=== PATIENT | male | born 1945 | race Hispanic/Latino ===

== ENCOUNTER → 2022-07-07 | Outpatient (CLI) | payer OTHER | END | disposition home or self-care (01) | LOC: RAH 11:42 | PROVIDERS: ATTEND Internal Medicine | DX: M17.0 Bilateral primary osteoarthritis of knee (principal); M17.9 Osteoarthritis of knee, unspecified ==

== ENCOUNTER → 2022-10-03 | Outpatient (CLI) | payer OTHER | END | disposition home or self-care (01) | LOC: RAH 16:20 | PROVIDERS: ATTEND Internal Medicine | DX: M19.011 Primary osteoarthritis, right shoulder (principal); M25.511 Pain in right shoulder | CPT/HCPCS: 73030 ==

== ENCOUNTER 2024-08-11 10:39 | Observation (INO) | payer OTHER ==
[~2024-08-11] VITALS: Ht 162.6 cm; Wt 87.1 kg
--- NOTE | 2024-08-11 11:29 | HMCIMG ---
EXAM: CT Head Without IV contrast. CLINICAL HISTORY: fall TECHNIQUE: Axial computed tomography images of the head/brain without intravenous contrast. COMPARISON: None provided. FINDINGS: BRAIN: No acute bleed or infarct. Chronic ischemic and atrophic changes. VENTRICLES: No hydrocephalus. ORBITS: The orbits are unremarkable. SINUSES AND MASTOIDS: The paranasal sinuses and mastoid air cells are clear. BONES: No fracture. SOFT TISSUES: Unremarkable. IMPRESSION: No acute bleed or infarct. Chronic ischemic and atrophic changes. /[place]
--- NOTE | 2024-08-11 11:38 | HMCIMG ---
EXAM: CT Cervical Spine Without IV contrast. CLINICAL HISTORY: fall TECHNIQUE: Axial computed tomography images of the cervical spine without intravenous contrast. Sagittal and coronal reformatted images were generated. COMPARISON: None provided. FINDINGS: ALIGNMENT: No dislocation. Straightening of the cervical spine. DEGENERATIVE CHANGES: Mild to moderate degenerative changes which are more pronounced in the lower cervical spine. SOFT TISSUES: The prevertebral soft tissues are within normal limits. BONES: No fracture in the cervical spine. Nondisplaced fracture of the left occipital bone. IMPRESSION: 1. Nondisplaced fracture of the left occipital bone. 2. No fracture or dislocation in the cervical spine. 3. Straightening of the cervical spine. Which may be due to paraspinal muscle spasm. 4. Mild to moderate degenerative changes which are more pronounced in the lower cervical spine. /[place]
[2024-08-11 12:09] LABS: IMMATURE GRANULOCYTE ABSOLUTE 0.07 K/uL (0-1); NUCLEATED RED BLOOD CELLS 0.0 % (0.0-0.19); PLATELET COUNT (AUTO) 161 K/uL (130-400); RED BLOOD CELL COUNT(AUTO) 3.97 MIL/uL (4.50-6.20); RED CELL DISTRIBUTION WIDTH 14.3 % (11.0-15.5); WHITE BLOOD COUNT (AUTO) 5.1 K/uL (4.8-10.8)
[2024-08-11 12:16] LABS: CREATININE 0.8 mg/dL (0.5-1.3); GLOMERULAR FILTR. RATE CALC 91.0 mL/min (>90); GLUCOSE,RANDOM 222.0 mg/dL (70-105); SODIUM SERUM 139.0 mmol/L (136-145); UREA NITROGEN, BLOOD 14.0 mg/dL (7-18)
[2024-08-11 12:26] LABS: APPEARANCE,URINE CLEAR (CLEAR); GLUCOSE, URINE (UA) >=1000 mg/dL (NEGATIVE); LEUKOCYTE ESTERASE ,URINE 250 Leu/uL (NEGATIVE); NITRATE,URINE NEGATIVE (NEGATIVE); OCCULT BLOOD,URINE NEGATIVE (NEGATIVE)
[2024-08-11 12:31] LABS: ADD UA MICROSCOPIC YES
--- NOTE | 2024-08-11 12:48 | EKG ---
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
--- NOTE | 2024-08-11 13:00 | HMCIMG ---
EXAM: CR right elbow, 2 View. CLINICAL HISTORY: fall COMPARISON: None provided. FINDINGS: BONES: No acute fracture or aggressive appearing osseous lesion. 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 Heterotopic ossification at the lateral aspect of the elbow reflecting a prior ligamentous injury. SOFT TISSUES: Soft tissue edema at the proximal aspect of the right forearm. IMPRESSION: 1. No acute osseous injury. 2. Soft tissue edema of the proximal right forearm. 3. 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 /[place]
--- NOTE | 2024-08-11 13:03 | HMCIMG ---
EXAM: CR Sacrum and Coccyx, 3 View. CLINICAL HISTORY: fall COMPARISON: None provided. FINDINGS: BONES: Bones are osteopenic, limiting evaluation for nondisplaced fractures. There is no displaced fracture or evidence of periostitis. There is mild grade 1 anterolisthesis of L5 with respect to S1 likely related to facet joint osteoarthritis. SOFT TISSUES: The soft tissues are unremarkable. IMPRESSION: 1. No acute osseous injury. If clinical concern persists recommend CT imaging for further evaluation. /[place]
[2024-08-11 13:04] LABS: SQUAMOUS EPITHELIAL CELL,UR RARE /HPF (0-2)
--- NOTE | 2024-08-11 13:11 | HMCIMG ---
EXAM: CR Chest, 1 View. CLINICAL HISTORY: sob COMPARISON: Radiograph dated July 17, 2013 FINDINGS: LUNGS: The lungs show no infiltrate or other acute finding. Mild bibasilar atelectasis and/or parenchymal scarring. PLEURAL SPACES: No pleural effusion or pneumothorax. MEDIASTINUM: Mild cardiomegaly. Mild central pulmonary vascular congestion. BONES: No aggressive appearing osseous lesion seen. IMPRESSION: 1. No acute cardiopulmonary findings. 2. Mild cardiomegaly with mild central pulmonary vascular congestion. [facility]
[2024-08-11] MEDS ORDERED: ASPI-449 PO (13:27)
[2024-08-11] MEDS ORDERED: LOSA100T59 PO (13:29)
[2024-08-11] MEDS ORDERED: TAMS-55 PO (13:29)
[2024-08-11] MEDS ORDERED: ATOR40TA71 PO (13:29)
[2024-08-11] MEDS ORDERED: PIOG30TA70 PO (13:29)
[2024-08-11] MEDS ORDERED: CYAN10007 IJ (13:29)
[2024-08-11] MEDS ORDERED: METF-446 PO (13:29)
--- NOTE | 2024-08-11 13:53 | ERN ---
ED Note History of Present Illness Stated Complaint: FALL Chief Complaint: Mechanical Fall Time Seen by MD: 10:44 Time Seen by Midlevel: 10:48 Dictation: 79-year-old male coming in status post fall. Patient states he was walking down three steps and fell back landing on his buttocks and hitting his head on the concrete. Negative LOC, no blood thinners. Complaining of headache and right shoulder pain. Allergies: Coded Allergies: No Known Drug Allergies (Unverified Allergy, Unknown, 08/11/24) Home Meds Active Scripts Cyanocobalamin (Vitamin B-12) (Cyanocobalamin Injection) 1,000 Mcg/Ml Vial, 1000 MCG IJ QMONTH, #4 VIAL Prov:KANDY MAHMOOD MD 08/11/24 Tamsulosin HCl (Flomax) 0.4 Mg Cap.er.24h, 0.4 MG PO BID, #180 CAPSULE. Prov:KANDY MAHMOOD MD 08/11/24 Pioglitazone HCl (Pioglitazone HCl) 30 Mg Tablet, 30 MG PO DAILYBKFST, #90 TAB Prov:KANDY MAHMOOD MD 08/11/24 Metformin HCl (Metformin HCl) 1,000 Mg Tablet, 1000 MG PO BID, #180 TAB Prov:KANDY MAHMOOD MD 08/11/24 Losartan Potassium (Losartan Potassium) 100 Mg Tablet, 100 MG PO DAILY, #90 TAB Prov:KANDY MAHMOOD MD 08/11/24 Atorvastatin Calcium (Atorvastatin Calcium) 40 Mg Tablet, 40 MG PO HS, #90 TAB Prov:KANDY MAHMOOD MD 08/11/24 Aspirin (Adult Low Dose Aspirin EC) 81 Mg Tablet., 81 MG PO DAILY, #90 TAB Prov:KANDY MAHMOOD MD 08/11/24 Past Medical History Past Medical History: Diabetes-Type II, High Cholesterol, Hypertension Surgical History: Other Surgical History Other: BRAIN SX Review of System Dictation Constitutional: Negative for fever,chills, and weight loss Eyes: Negative for injury, pain,redness, and discharge ENT: Negative for injury,pain or swelling Cardiovascular: Negative for chest pain, palpitations, and edema Respiratory: Negative for shortness of breath, cough, and wheezing, Abdomen/GI: Negative for abdominal pain, nausea, vomiting, diarrhea, and constipation Back: Negative for injury and pain : Negative for injury, bleeding and discharge MS/Extremity: Negative for injury and deformity, complaining of right elbow pain Skin: Negative for rash, and discoloration Neuro: Complaining of headache, no numbness, no weakness, no tingling Psych: Negative for suicide ideation, homicidal ideation, and hallucinations Review of Systems: was completed Initial Vital Sign VS Vital Signs Date Time Temp Pulse Resp B/P (MAP) Pulse Ox O2 Delivery O2 Flow Rate FiO2 08/11/24 10:47 97.9 88 16 175/85 96 Room Air 0 Physical Exam Dictation General: awake, alert, NAD Head/Face: Normocephalic, atraumatic Eyes: PERRL, EOMI, vision at baseline ENT: oral cavity clear, TMs clear, no signs of infection Neck: Trachea midline, supple, no nuchal rigidity Cardiovascular: RRR, normal S1/S2, No MRGs, no JVD Respiratory: CTAB, no respiratory distress, No rales or wheezes Abdomen: Soft, non-tender, non-distended, normal bowel sounds, no guarding or rebound. Skin: Warm, dry, normal turgor, no rash, superficial abrasion to the occipital area MS/Extremity: Pulses equal, no cyanosis, neurovascular intact, FROM Neuro: COAx4, GCS 15, strength 5/5, CN 2-12 intact, normal cerebellar exam, normal gait, Psych: Normal behavior, mood, and affect normal Results (Laboratory/Radiology) Laboratory/Radiology Laboratory Tests Test 08/11/24 11:56 08/11/24 12:02 Urine Color LIGHT-YELLOW (YELLOW) Urine Appearance CLEAR (CLEAR) Urine pH 6.0 (5.0-8.0) Urine Specific [place] 1.015 (1.001-1.031) Urine Protein 20 mg/dL (NEGATIVE) H Urine Glucose (UA) >=1000 mg/dL (NEGATIVE) H Urine Ketones NEGATIVE mg/dL (NEGATIVE) Urine Occult Blood NEGATIVE (NEGATIVE) Urine Nitrate NEGATIVE (NEGATIVE) Urine Bilirubin NEGATIVE mg/dL (NEGATIVE) Urine Urobilinogen 0.2 mg/dL (0.2-1.0) Urine Leukocyte Esterase 250 Moni/uL (NEGATIVE) H Urine RBC 2-5 /HPF (0-1) H Urine WBC 6-10 /HPF (0-1) H Urine Squamous Epithelial Cells RARE /HPF (0-2) Urine Bacteria None /HPF (None Seen) White Blood Count 5.1 K/uL (4.8-10.8) Red Blood Count 3.97 MIL/uL (4.50-6.20) L Hemoglobin 12.3 g/dL (14.0-18.0) L Hematocrit 38.5 % (42-54) L Mean Corpuscular Volume 97.0 fL (79-99) Mean Corpuscular Hemoglobin 31.0 pg (27.0-33.0) Mean Corpuscular Hemoglobin Concent 31.9 g/dL (32.0-36.0) L Red Cell Distribution Width 14.3 % (11.0-15.5) Platelet Count 161 K/uL (130-400) Mean Platelet Volume 11.5 fL (7.5-10.5) H Immature Granulocyte % (Auto) 1.4 % (0-1) H Neutrophils (%) (Auto) 85.0 % (40.0-77.0) H Lymphocytes (%) (Auto) 5.3 % (21.0-51.0) L Monocytes (%) (Auto) 6.3 % (3.0-13.0) Eosinophils (%) (Auto) 1.6 % (0.0-8.0) Basophils (%) (Auto) 0.4 % (0.0-5.0) Neutrophils # (Auto) 4.4 K/uL (1.8-7.7) Lymphocytes # (Auto) 0.3 K/uL (1.0-4.8) L Monocytes # (Auto) 0.3 K/uL (0.1-1.0) Eosinophils # (Auto) 0.08 K/uL (0.00-0.70) Basophils # (Auto) 0.02 K/uL (0.00-0.20) Absolute Immature Granulocyte (auto 0.07 K/uL (0-1) Nucleated Red Blood Cells 0.0 % (0.0-0.19) White Cell Morphology Comment See comments Sodium Level 139 mmol/L (136-145) Potassium Level 4.2 mmol/L (3.5-5.1) Chloride Level 103 mmol/L (101-111) Carbon Dioxide Level 30 mmol/L (21-32) Blood Urea Nitrogen 14 mg/dL (7-18) Creatinine 0.8 mg/dL (0.5-1.3) Glomerular Filtration Rate Calc 91 mL/min (>90) Random Glucose 222 mg/dL (70-105) H Total Calcium 8.9 mg/dL (8.5-10.1) Troponin I High Sensitivity 9 ng/L (4-75) Labs Reviewed?: Yes X-RAY Comment: [facility] [address] [place] [address] [id number] IMAGING REPORT Signed PATIENT: CRISTÓBAL URBINA MR#: [id number] : 1945 SEX: M AGE: 79 LOCATION: [facility] ORDER 1145 STATUS: REG ER REPORT#: [id number] SERVICE 1143 REASON: sob ORDERING PHYSICIAN: CAREN PEREIRA NP PROCEDURE: CXR1VW - CHEST 1VW EXAM: CR Chest, 1 View. CLINICAL HISTORY: sob COMPARISON: Radiograph dated July 17, 2013 FINDINGS: LUNGS: The lungs show no infiltrate or other acute finding. Mild bibasilar atelectasis and/or parenchymal scarring. PLEURAL SPACES: No pleural effusion or pneumothorax. MEDIASTINUM: Mild cardiomegaly. Mild central pulmonary vascular congestion. BONES: No aggressive appearing osseous lesion seen. IMPRESSION: 1. No acute cardiopulmonary findings. 2. Mild cardiomegaly with mild central pulmonary vascular congestion. /[place] DICTATED BY: FLACO CRUZ Jr., MD DATE: 08/11/241409 ELECTRONICALLY SIGNED BY: FLACO CRUZ Jr., MD DATE: 08/11/24 141 [facility] [address] [place] [id number] IMAGING REPORT Signed PATIENT: CRISTÓBAL URBINA MR#: [id number] : 1945 SEX: M AGE: 79 LOCATION: [facility] ORDER 1048 STATUS: REG [facility] REPORT#: [id number] SERVICE 46 REASON: fall ORDERING PHYSICIAN: CAREN PEREIRA BREEDING TECHNICIAN PROCEDURE: SAC SHEILA 2V - SACRUM/COCCYX 2+VWS EXAM: CR Sacrum and Coccyx, 3 View. CLINICAL HISTORY: fall COMPARISON: None provided. FINDINGS: BONES: Bones are osteopenic, limiting evaluation for nondisplaced fractures. There is no displaced fracture or evidence of periostitis. There is mild grade 1 anterolisthesis of L5 with respect to S1 likely related to facet joint osteoarthritis. SOFT TISSUES: The soft tissues are unremarkable. IMPRESSION: 1. No acute osseous injury. If clinical concern persists recommend CT imaging for further evaluation. /[place] DICTATED BY: FLACO CRUZ Jr., MD DATE: 08/11/241401 ELECTRONICALLY SIGNED BY: FLACO CRUZ Jr., MD DATE: 08/11/241401 [place] [address] IMAGING REPORT Signed PATIENT: CRISTÓBAL URBINA MR#: [id number] : 1945 SEX: M AGE: 79 LOCATION: [facility] ORDER 47 STATUS: REG ER [facility] REPORT#: [id number] SERVICE 46 REASON: fall ORDERING PHYSICIAN: CAREN PEREIRA NP PROCEDURE: KHQ2UWP - ELBOW 2VWS RT EXAM: CR right elbow, 2 View. CLINICAL HISTORY: fall COMPARISON: None provided. FINDINGS: BONES: No acute fracture or aggressive appearing osseous lesion. 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 Heterotopic ossification at the lateral aspect of the elbow reflecting a prior ligamentous injury. SOFT TISSUES: Soft tissue edema at the proximal aspect of the right forearm. IMPRESSION: 1. No acute osseous injury. 2. Soft tissue edema of the proximal right forearm. 3. 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 /[place] DICTATED BY: FLACO CRUZ Jr., MD DATE: 08/11/24 135 ELECTRONICALLY SIGNED BY: FLACO CRUZ Jr., MD DATE: 08/11/[address] Scan Comment: [place] [address] [place] [address] IMAGING REPORT Addendum PATIENT: CRISTÓBAL URBINA MR#: [id number] : 1945 SEX: M AGE: 79 LOCATION: [facility] ORDER 47 STATUS: [facility] REPORT#: [id number] SERVICE 46 REASON: fall ORDERING PHYSICIAN: CAREN PEREIRA BREEDING TECHNICIAN PROCEDURE: HEAD WO - CT HEAD/BRAIN W/O CONTRAST ADDENDUM REPORT ADDENDUM: Results were shared by telephone at 12:43 pm on 08-11-24 and acknowledged by Caren Bales /[place] ADDENDUM: There is a nondisplaced fracture of the left occipital bone. /[place] EXAM: CT Head Without IV contrast. CLINICAL HISTORY: fall TECHNIQUE: Axial computed tomography images of the head/brain without intravenous contrast. COMPARISON: None provided. FINDINGS: BRAIN: No acute bleed or infarct. Chronic ischemic and atrophic changes. VENTRICLES: No hydrocephalus. ORBITS: The orbits are unremarkable. SINUSES AND MASTOIDS: The paranasal sinuses and mastoid air cells are clear. BONES: No fracture. SOFT TISSUES: Unremarkable. IMPRESSION: No acute bleed or infarct. Chronic ischemic and atrophic changes. /[place] DICTATED BY: PARDEEP SPEAR MD DATE: 08/11/24 1248 ELECTRONICALLY SIGNED BY: DATE: EXAM: CT Head Without IV contrast. CLINICAL HISTORY: fall TECHNIQUE: Axial computed tomography images of the head/brain without intravenous contrast. COMPARISON: None provided. FINDINGS: BRAIN: No acute bleed or infarct. Chronic ischemic and atrophic changes. VENTRICLES: No hydrocephalus. ORBITS: The orbits are unremarkable. SINUSES AND MASTOIDS: The paranasal sinuses and mastoid air cells are clear. BONES: No fracture. SOFT TISSUES: Unremarkable. IMPRESSION: No acute bleed or infarct. Chronic ischemic and atrophic changes. /[place] DICTATED BY: PARDEEP SPEAR MD DATE: 08/11/241227 ELECTRONICALLY SIGNED BY: PARDEEP SPEAR MD DATE: 08/11/241227 [address] [place] [id number] IMAGING REPORT Addendum PATIENT: CRISTÓBAL URBINA MR#: [id number] : 1945 SEX: M AGE: 79 LOCATION: ED ORDER 47 STATUS: [facility] REPORT#: [id number] SERVICE 46 REASON: fall ORDERING PHYSICIAN: CAREN PEREIRA NP PROCEDURE: C SPIN WO - CT CERVICAL SPINE W/O CONTRAST ADDENDUM REPORT ADDENDUM: Results were shared by telephone at 12:43 pm on 08-11-24 and acknowledged by Caren Bales /[place] EXAM: CT Cervical Spine Without IV contrast. CLINICAL HISTORY: fall TECHNIQUE: Axial computed tomography images of the cervical spine without intravenous contrast. Sagittal and coronal reformatted images were generated. COMPARISON: None provided. FINDINGS: ALIGNMENT: No dislocation. Straightening of the cervical spine. DEGENERATIVE CHANGES: Mild to moderate degenerative changes which are more pronounced in the lower cervical spine. SOFT TISSUES: The prevertebral soft tissues are within normal limits. BONES: No fracture in the cervical spine. Nondisplaced fracture of the left occipital bone. IMPRESSION: 1. Nondisplaced fracture of the left occipital bone. 2. No fracture or dislocation in the cervical spine. 3. Straightening of the cervical spine. Which may be due to paraspinal muscle spasm. 4. Mild to moderate degenerative changes which are more pronounced in the lower cervical spine. /[place] DICTATED BY: PARDEEP SPEAR MD DATE: 08/11/24 1250 ELECTRONICALLY SIGNED BY: DATE: EXAM: CT Cervical Spine Without IV contrast. CLINICAL HISTORY: fall TECHNIQUE: ED Course ED Course Orders Procedure Category Date Status Time Ct Head/Brain W/O CT 08/11/24 Resulted Contrast 10:47 Ct Cervical Spine W/O CT 08/11/24 Resulted Contrast 10:47 Sacrum/Coccyx 2+Vws RAD 08/11/24 Resulted 10:47 Elbow 2vws Rt RAD 08/11/24 Resulted 10:47 Cbc With Differential LAB 08/11/24 Complete 11:44 Basic Metabolic Panel LAB 08/11/24 Complete 11:44 Troponin I High LAB 08/11/24 Complete Sensitivity 11:44 12 Lead Ekg Tracing- EKG 08/11/24 Complete Technical 11:44 Chest 1vw RAD 08/11/24 Resulted 11:44 Urinalysis Profile LAB 08/11/24 Complete 11:44 Culture Urine YOKASTA 08/11/24 In Process 12:34 Morphine 2mg Syg PHA 08/11/24 Complete (Morphine 2mg Syg) 13:18 Ondansetron 4mg Inj PHA 08/11/24 Complete (Zofran 4mg Inj) 13:18 Atorvastatin 40mg PHA 08/11/24 In Process (Lipitor 40mg) 21:00 Losartan 100 Mg PHA 08/12/24 In Process Tablet (Cozaar 100mg 09:00 Pioglitazone 30mg Tab PHA 08/12/24 In Process (Actos 30mg) 08:00 Tamsulosin Hcl PHA 08/11/24 In Process (Flomax) 21:00 Metformin Hcl PHA 08/11/24 In Process (Glucophage) 17:00 Current Medications Medications (Trade) Dose Ordered Sig/Anil Route PRN Reason Start Time Stop Time Status Last Admin Dose Admin Atorvastatin Calcium (LIPItor 40MG) 40 mg HS PO 08/11/24 21:00 09/10/24 20:59 Losartan Potassium (CozAAR 100MG TAB) 100 mg DAILY PO 08/12/24 09:00 09/11/24 08:59 Metformin HCl (glucoPHAGE) 1,000 mg BIDMEALS PO 08/11/24 17:00 09/10/24 16:59 Morphine Sulfate (morPHINE 2MG SYG) 2 mg ONCE STAT IVP 08/11/24 13:18 08/11/24 13:20 DC Ondansetron HCl (zoFRAN 4MG INJ) 4 mg ONCE STAT IVP 08/11/24 13:18 08/11/24 13:20 DC Pioglitazone HCl (Actos 30mg) 30 mg DAILYBKFST PO 08/12/24 08:00 09/11/24 07:59 Tamsulosin HCl (FloMAX) 0.4 mg BID PO 08/11/24 21:00 09/10/24 20:59 Vital Signs Date Time Temp Pulse Resp B/P (MAP) Pulse Ox O2 Delivery O2 Flow Rate FiO2 08/11/24 10:47 97.9 88 16 175/85 96 Room Air 0 Medical Decision Making MDM MDM: 79-year-old male coming in status post fall. Patient states he was walking down three steps and fell back landing on his buttocks and hitting his head on the concrete. Negative LOC, no blood thinners. Complaining of headache and right shoulder pain. Blood work is unremarkable. UA shows no evidence of urinary tract infection. All of the images show no acute findings except for the CT of the C-spine shows a nondisplaced occipital bone fracture. Due to patient's age and comorbidities patient will be admitted for observation. ER MD spoke to admitting team for admission. They accepted admission. Differential diagnosis: SDH, ICH, elbow dislocation, elbow contusion Rationale: Tests considered and ordered secondary to shared decision making include: labs, ECG and radiology Previous outside records reviewed: Old ER visits. Risk of complication and/or morbidity or mortality of patient management: None Medications-Per medication reconciliation Need for hospitalization: Patient does meet criteria for hospitalization. Need for emergency major/minor surgery: No There are no social concerns with this patient. Prescription drug management Prescriptions will include symptomatic care Patient's prior external medical records from other ER visits were reviewed by me as indicated. Prior testing and results from previous visits were reviewed. Prior tests were taken into account with medical decision making and resource utilization, independent historian/historians were used to obtain complete medical history. I independently interpreted the test that were performed, results were reviewed by me and considered findings on radiology if ordered. Medical management and examination interpretation discussions were had by me with other qualified healthcare professionals as indicated for the patient's care. DX & DISP Disposition: Inpatient Decision to Admit Date: Aug 11, 2024 Decision to Admit Time: 13:57 Departure Impression: Primary Impression: Head injury Additional Impression: Occipital bone fracture Condition: Stable Scripts Cyanocobalamin (Vitamin B-12) (Cyanocobalamin Injection) 1,000 Mcg/Ml Vial 1000 MCG IJ QMONTH, #4 VIAL Prov: KANDY MAHMOOD MD 08/11/24 Tamsulosin HCl (Flomax) 0.4 Mg Cap.er.24h 0.4 MG PO BID, #180 CAPSULE. Prov: KANDY MAHMOOD MD 08/11/24 Pioglitazone HCl (Pioglitazone HCl) 30 Mg Tablet 30 MG PO DAILYBKFST, #90 TAB Prov: KANDY MAHMOOD MD 08/11/24 Metformin HCl (Metformin HCl) 1,000 Mg Tablet 1000 MG PO BID, #180 TAB Prov: KANDY MAHMOOD MD 08/11/24 Losartan Potassium (Losartan Potassium) 100 Mg Tablet 100 MG PO DAILY, #90 TAB Prov: KANDY MAHMOOD MD 08/11/24 Atorvastatin Calcium (Atorvastatin Calcium) 40 Mg Tablet 40 MG PO HS, #90 TAB Prov: KANDY MAHMOOD MD 08/11/24 Aspirin (Adult Low Dose Aspirin EC) 81 Mg Tablet. 81 MG PO DAILY, #90 TAB Prov: KANDY MAHMOOD MD 08/11/24 Referrals: KANDY MAHMOOD MD (PCP) Time of Disposition: 13:57 I have reviewed the case, and I agree with, Diagnosis and Plan CAREN PEREIRA NP Aug 11, 2024 13:53
[2024-08-11 16:30] VITALS: O2SAT 98
[2024-08-11 21:00] VITALS: O2SAT 95
[2024-08-11 21:48] VITALS: BP 160/84; PULSE 77; RESP 18; TEMP 99.1
--- NOTE | 2024-08-11 22:14 | HP ---
HISTORY AND PHYSICAL Date of Visit: Aug 11, 2024 Time of Visit: 22:14 ADMISSION DATE: Aug 11, 2024 at 13:50 CC: ACCIDENTAL FALL HPI: THIS IS A 79 YR OLD MAN WITH HISTORY OF AN ACUTE FALL AT HIS HOME EARLIER TODAY. HE REPORTS HIS FLOOR WAS WET AND WHILE HE WAS WALKING FAIRLY QUICKLY HE SLIPPED FELL BACK ON HIS BUTTOCKS AND THEN HIS HEAD CONTINUED IN MOTION AND STRUCK THE FLOOR. HE DENIES ANY LOSS OF CONSCIOUSNESS. HE ONLY TAKES AN ASPIRIN BUT HAS NOT BEEN TAKING IT RECENTLY. HE HAS SOME RESIDUAL HEAD PAIN ON THE BACK OF HIS SCALP. HE NOTED SOME BLEEDING ON HIS SCALP AND GOT UP RIGHT AWAY PER PT AND HIS FAMILY ENCOURAGED HIM TO SEEK MEDICAL ATTENTION. HE DENIED ANY FEVERS, CHILLS NAUSEA VOMITING CP SOB PALPITATIONS. HE DOES HAVE SOME POSTERIOR NECK AND LOWER BACK PAIN FROM THE FALL BUT DESCRIBES NOT PROBLEMS WITH HIS WALKING ABILITIES. PAST MEDICAL HISTORY: ALLERGIC RHINITIS BPH W OBS DM II HYPERTENSIVE RENAL DISEASE HYPERLIPIDEMIA MIXED PVD/ ATHEROSCLEROSIS OF LEGS SOCIAL HISTORY: LIVES LOCALLY WITH FAMILY FAMILY HISTORY: + HTN ^ Allergies: Coded Allergies: No Known Drug Allergies (Unverified Allergy, Unknown, 08/11/24) Scheduled Aspirin (Adult Low Dose Aspirin EC), 81 MG PO DAILY Atorvastatin Calcium (Atorvastatin Calcium), 40 MG PO HS Cyanocobalamin (Vitamin B-12) (Cyanocobalamin Injection), 1,000 MCG IJ QMONTH Losartan Potassium (Losartan Potassium), 100 MG PO DAILY Metformin HCl (Metformin HCl), 1,000 MG PO BID Pioglitazone HCl (Pioglitazone HCl), 30 MG PO DAILYBKFST Tamsulosin HCl (Flomax), 0.4 MG PO BID Review of Systems Normal Constitutional:, Normal Eyes:, Normal Ear/Nose/Mouth/Throat, Normal Cardiovascular:, Normal Respiratory:, Normal Gastrointestinal:, Normal Genitourinary:, Normal Integumentary:, Normal Musculoskeletal:, Normal Psychological:, Normal Endocrine:, Normal Hematologic/Lymphatic:, Normal Allergic/Immunologic:; Abnormal Neurological: (POSTERIOR HEAD PAIN WHERE HE STRUCK HIS HEAD) Physical Exam Vital Signs Vital Signs Date Time Temp Pulse Resp B/P (MAP) Pulse Ox O2 Delivery O2 Flow Rate FiO2 08/11/24 10:47 97.9 88 16 175/85 96 Room Air 0 08/11/24 12:00 21 Appearance: Obese Eyes: Clear, PERRL, EOM Normal Ear/Nose/Mouth/Throat: Landmarks WNL, Hearing WNL, Nasal w/o drainage, Denti tion WNL, Oropharynx WNL Neck: Symmetric, trach midline, Thyroid WNL Cardiovascular: Regular Rate, Regular Rhythm, Pedal Pulses +2, No Edema Respiratory: No Retractions, Lungs clear G.I.: Normal bowel sounds, No pain w/ palpations, Normal sphincter tone, No rebound tenderness Lymphatic: No lymphadenopathy neck, No lymphadenopathy groin Musculoskeletal: Gait WNL, Normal ROM Skin: No rash/ulcers Neurology: Nerves I-XII intact, DTR intact, Sensation WNL Psychology: Insight WNL, Orientation WNL, Memory WNL, Affect WNL Diagnostics Laboratory Tests Test 08/11/24 11:56 08/11/24 12:02 08/11/24 16:25 08/11/24 20:22 Range/Units Urine Color LIGHT-YELLOW YELLOW Urine Appearance CLEAR CLEAR Urine pH 6.0 5.0-8.0 Urine Specific [place] 1.015 1.001-1.031 Urine Protein 20 NEGATIVE mg/dL Urine Glucose (UA) >=1000 NEGATIVE mg/dL Urine Ketones NEGATIVE NEGATIVE mg/dL Urine Occult Blood NEGATIVE NEGATIVE Urine Nitrate NEGATIVE NEGATIVE Urine Bilirubin NEGATIVE NEGATIVE mg/dL Urine Urobilinogen 0.2 0.2-1.0 mg/dL Urine Leukocyte Esterase 250 NEGATIVE Moni/uL Urine RBC 2-5 0-1 /HPF Urine WBC 6-10 0-1 /HPF Urine Squamous Epithelial Cells RARE 0-2 /HPF Urine Bacteria None None Seen /HPF White Blood Count 5.1 4.8-10.8 K/uL Red Blood Count 3.97 4.50-6.20 MIL/uL Hemoglobin 12.3 14.0-18.0 g/dL Hematocrit 38.5 42-54 % Mean Corpuscular Volume 97.0 79-99 fL Mean Corpuscular Hemoglobin 31.0 27.0-33.0 pg Mean Corpuscular Hemoglobin Concent 31.9 32.0-36.0 g/dL Red Cell Distribution Width 14.3 11.0-15.5 % Platelet Count 161 130-400 K/uL Mean Platelet Volume 11.5 7.5-10.5 fL Immature Granulocyte % (Auto) 1.4 0-1 % Neutrophils (%) (Auto) 85.0 40.0-77.0 % Lymphocytes (%) (Auto) 5.3 21.0-51.0 % Monocytes (%) (Auto) 6.3 3.0-13.0 % Eosinophils (%) (Auto) 1.6 0.0-8.0 % Basophils (%) (Auto) 0.4 0.0-5.0 % Neutrophils # (Auto) 4.4 1.8-7.7 K/uL Lymphocytes # (Auto) 0.3 1.0-4.8 K/uL Monocytes # (Auto) 0.3 0.1-1.0 K/uL Eosinophils # (Auto) 0.08 0.00-0.70 K/uL Basophils # (Auto) 0.02 0.00-0.20 K/uL Absolute Immature Granulocyte (auto 0.07 0-1 K/uL Nucleated Red Blood Cells 0.0 0.0-0.19 % White Cell Morphology Comment See comments Sodium Level 139 136-145 mmol/L Potassium Level 4.2 3.5-5.1 mmol/L Chloride Level 103 101-111 mmol/L Carbon Dioxide Level 30 21-32 mmol/L Blood Urea Nitrogen 14 7-18 mg/dL Creatinine 0.8 0.5-1.3 mg/dL Glomerular Filtration Rate Calc 91 >90 mL/min Random Glucose 222 70-105 mg/dL Total Calcium 8.9 8.5-10.1 mg/dL Troponin I High Sensitivity 9 4-75 ng/L Whole Blood Glucose 114 212 70-110 MG/DL Assessment/Plan Assessment/Plan RADIOLOGY C SPIN WO - CT CERVICAL SPINE W/O CONTRAST FINDINGS: ALIGNMENT: No dislocation. Straightening of the cervical spine. DEGENERATIVE CHANGES: Mild to moderate degenerative changes which are more pronounced in the lower cervical spine. SOFT TISSUES: The prevertebral soft tissues are within normal limits. BONES: No fracture in the cervical spine. Nondisplaced fracture of the left occipital bone. IMPRESSION: 1. Nondisplaced fracture of the left occipital bone. 2. No fracture or dislocation in the cervical spine. 3. Straightening of the cervical spine. Which may be due to paraspinal muscle spasm. 4. Mild to moderate degenerative changes which are more pronounced in the lower cervical spine. HEAD WO - CT HEAD/BRAIN W/O CONTRAST FINDINGS: BRAIN: No acute bleed or infarct. Chronic ischemic and atrophic changes. VENTRICLES:No hydrocephalus ORBITS:The orbits are unremarkable SINUSES AND MASTOIDS: The paranasal sinuses and mastoid air cells are clear BONES:No fracture SOFT TISSUES:Unremarkable. IMPRESSION:CNo acute bleed or infarct. Chronic ischemic and atrophic changes. ASSESSMENT: THIS IS A 79 YR OLD MAN WITH HISTOR OF ALLERGIC RHINITIS BPH W OBS DM II HYPERTENSIVE RENAL DISEASE HYPERLIPIDEMIA MIXED PVD/ ATHEROSCLEROSIS OF LEGS HE PRESENTED WITH S/P GROUND LEVEL FALL S/P CLOSED HEAD INJURY NONDISPLACED FRACTURE OF LEFT OCCIPITAL LOBE CERVICAL SPINE MUSCLE SPASM SMALL POST SCALP LACERATION PLAN: ADMIT FOR OBSERVATION CONT OFF ASA AND REFRAIN FROM ANY ANTICOAGULANTS ANALGESICS PRN AND ANTI SPASMOTICS PRN MONITOR AND SUPPLEMENT ELECTROLYTES INC DIET AND REHAB TOLERATED ADJUST ANTI HYPERTENSIVES NEEDED MONITOR AND ADJUST OHG NEEDED REPEAT HCT IN AM UPDATED PATIENT AND SON AT BEDSIDE AND ANSWERED ALL QUESTIONS KANDY MAHMOOD MD Aug 11, 2024 22:14
[2024-08-12 00:12] VITALS: BP 140/85; PULSE 71; RESP 18; TEMP 98.8
[2024-08-12 05:29] VITALS: BP 164/88; PULSE 68; RESP 18; TEMP 98.9
[2024-08-12 08:00] VITALS: BP 153/89; PULSE 67; RESP 17; TEMP 97.5; O2SAT 95
[2024-08-12] MEDS: PIOGLITAZONE 30MG TAB PO SCH (11:05)
--- NOTE | 2024-08-12 11:59 | NUR ---
DCP: HOME Pt currently live with sps Yandy [phone]. Pt does not have any DME, home health, or provider services. Pt is able to complete ADLs independently. PCP is Dr. Melba Max and uses [facility] for any RX needs. At [place] pt will go home and son in law Jose Maria Bailey [phone] will assist with transportation. Addendum: 08/12/24 at 1201 by CHASE SIMPSON SS Amended: Links added.
--- NOTE | 2024-08-12 13:10 | DS ---
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 Straightening of the cervical spine. DEGENERATIVE CHANGES: Mild to moderate degenerative changes which are more pronounced in the lower cervical spine. SOFT TISSUES: The prevertebral soft tissues are within normal limits. BONES: No fracture in the cervical spine. Nondisplaced fracture of the left occipital bone. IMPRESSION: 1. Nondisplaced fracture of the left occipital bone. 2. No fracture or dislocation in the cervical spine. 3. Straightening of the cervical spine. Which may be due to paraspinal muscle s pasm. 4. Mild to moderate degenerative changes which are more pronounced in the lower cervical spine. HEAD WO - CT HEAD/BRAIN W/O CONTRAST - 08/11/2024 FINDINGS: BRAIN: No acute bleed or infarct. Chronic ischemic and atrophic changes. VENTRICLES:No hydrocephalus ORBITS:The orbits are unremarkable SINUSES AND MASTOIDS: The paranasal sinuses and mastoid air cells are clear BONES:No fracture SOFT TISSUES:Unremarkable. IMPRESSION: No acute bleed or infarct. Chronic ischemic and atrophic changes. GFR2TBU - ELBOW 2VWS RT - 08/11/2024 FINDINGS: BONES:No acute fracture or aggressive appearing osseous lesion. 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 Heterotopic ossification at the lateral aspect of the elbow reflecting a prior ligamentous injury. SOFT TISSUES: Soft tissue edema at the proximal aspect of the right forearm. IMPRESSION: 1. No acute osseous injury. 2. Soft tissue edema of the proximal right forearm. 3. 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 There is no displaced fracture or evidence of periostitis. There is mild grade 1 anterolisthesis of L5 with respect to S1 likely related to facet joint osteoarthritis. SOFT TISSUES: The soft tissues are unremarkable. IMPRESSION: No acute osseous injury. If clinical concern persists recommend CT imaging for further evaluation. CXR1VW - CHEST 1VW - 08/11/2024 FINDINGS: LUNGS: The lungs show no infiltrate or other acute finding. Mild bibasilar atelectasis and/or parenchymal scarring. PLEURAL SPACES: No pleural effusion or pneumothorax. MEDIASTINUM: Mild cardiomegaly. Mild central pulmonary vascular congestion. BONES: No aggressive appearing osseous lesion seen. IMPRESSION: 1. No acute cardiopulmonary findings. 2. Mild cardiomegaly with mild central pulmonary vascular congestion. HEAD WO - CT HEAD/BRAIN W/O CONTRAST - 08/12/2024 FINDINGS: BRAIN: No evidence of acute hemorrhage. No mass lesion. No CT evidence for acute territorial infarct. No midline shift or extra-axial collections. Age-related neuroparenchymal atrophy and chronic small vessel ischemic changes. VENTRICLES: No hydrocephalus. ORBITS: The orbits are unremarkable. SINUSES AND MASTOIDS: The paranasal sinuses and mastoid air cells are clear. BONES: Stable linear undisplaced fracture of the left paramidline occipital bone. Stable undisplaced bony defect along the left posterolateral aspect of the occipital bone and underlying bony cortical thickening. SOFT TISSUES: Unremarkable. IMPRESSION: No acute intracranial abnormality. Mild generalized brain atrophy. Mild to moderate chronic small vessel ischemic disease. Stable linear undisplaced fracture of the left paramidline occipital bone. Stable undisplaced bony defect along the left posterolateral aspect of the occipital bone and underlying bony cortical thickening. HOSPITAL COURSE: THIS IS A 79 YR OLD MAN WITH THE ABOVE PMH WHO PRESENTED WITH AN ACCIDENTAL GROUND LEVEL FALL SUSTAINING A CLOSED HEAD INJURY WITH A NONDISPLACED FRACTURE OF LEFT OCCIPITAL BONE, CERVICAL SPINE MUSCLE SPASM AND A SMALL POST SCALP LACERATION. HE WAS MONITORED OVERNIGHT AND REMAINED STABLE WITHOUT ANY CHANGES NEUROLOGICALLY AND NO CHANGES IN HIS FOLLOW UP HCT THE FOLLOWING DAY AND RELEASED IN STABLE CONDITION. DIET: HEART HEALTHY ACTIVITY: PROGRESSIVE AMBULATION CONDITION: STABLE EQUIPMENT: NONE FOLLOW UP APPOINTMENT(S): DR MAX IN 2-3 DAYS DISPOSITION: HOME CODE STATUS: FULL OTHER : URINE CULTURE PENDING MEDICATION RECONCILIATION : Home Medications were reconciled with hospital medications upon discharge and discussed with patient and/or responsible libertarian. HOLD ASPIRIN THERAPY UNTIL FURTHER NOTICE RESUME ALL PREVIOUS MEDS ^ Home Meds Active Scripts Cyanocobalamin (Vitamin B-12) (Cyanocobalamin Injection) 1,000 Mcg/Ml Vial, 1000 MCG IJ QMONTH, #4 VIAL Prov:KANDY MAX MD 08/11/24 Tamsulosin HCl (Flomax) 0.4 Mg Cap.er.24h, 0.4 MG PO BID, #[address] Prov:KANDY MAX MD 08/11/24 Pioglitazone HCl (Pioglitazone HCl) 30 Mg Tablet, 30 MG PO DAILYBKFST, #90 TAB Prov:KANDY MAX MD 08/11/24 Metformin HCl (Metformin HCl) 1,000 Mg Tablet, 1000 MG PO BID, #180 TAB Prov:KANDY MAX MD 08/11/24 Losartan Potassium (Losartan Potassium) 100 Mg Tablet, 100 MG PO DAILY, #90 TAB Prov:KANDY MAX MD 08/11/24 Atorvastatin Calcium (Atorvastatin Calcium) 40 Mg Tablet, 40 MG PO HS, #90 TAB Prov:KANDY MAX MD 08/11/24 Discontinued Scripts Aspirin (Adult Low Dose Aspirin EC) 81 Mg Tablet.dr, 81 MG PO DAILY, #90 TAB Prov:KANDY MAX MD 08/11/24 KANDY MAX MD Aug 12, 2024 13:10
[2024-08-12 16:00] VITALS: BP 163/90; PULSE 69; RESP 17; TEMP 98.4
--- NOTE | 2024-08-12 16:00 | NUR ---
DISCHARGE EDUCATION PROVIDED FOR PATIENT. IV CATHETER REMOVED AND INTACT. PATIENT VERBALIZES UNDERSTANDING TO EDUCATION. FOLLOW UP APPOINTMENT MADE. PATIENT PENDING TRANSPORTATION WITH FAMILY. Addendum: 08/12/24 at 1613 by AYDEN BOLANOS LVN LVN PATIENT WHEELED DOWN VIA WHEELCHAIR TO PRIVATE CAR. NO FURTHER COMMENTS.
--- NOTE | 2024-08-13 03:28 | HMCIMG ---
EXAM: CT Head Without IV contrast. CLINICAL HISTORY: fu on head trauma and skull fracture TECHNIQUE: Axial computed tomography images of the head/brain without intravenous contrast. COMPARISON: CT HEAD/BRAIN W/O CONTRAST ON 08/11/2024 FINDINGS: BRAIN: No evidence of acute hemorrhage. No mass lesion. No CT evidence for acute territorial infarct. No midline shift or extra-axial collections. Age-related neuroparenchymal atrophy and chronic small vessel ischemic changes. VENTRICLES: No hydrocephalus. ORBITS: The orbits are unremarkable. SINUSES AND MASTOIDS: The paranasal sinuses and mastoid air cells are clear. BONES: Stable linear undisplaced fracture of the left paramidline occipital bone. Stable undisplaced bony defect along the left posterolateral aspect of the occipital bone and underlying bony cortical thickening. SOFT TISSUES: Unremarkable. IMPRESSION: No acute intracranial abnormality. Mild generalized brain atrophy. Mild to moderate chronic small vessel ischemic disease. Stable linear undisplaced fracture of the left paramidline occipital bone. Stable undisplaced bony defect along the left posterolateral aspect of the occipital bone and underlying bony cortical thickening. /[place]
== END 2024-08-12 16:20 | disposition home or self-care (01) ==
LOC: EDH 10:39 → INTOOBSV 13:50 → EDHIP 13:50 → 4DH 16:15
PROVIDERS: ADMIT Internal Medicine; ATTEND Internal Medicine
DX: S02.11HA Other fracture of occiput, left side, initial encounter for closed fracture (principal); M62.838 Other muscle spasm; S01.01XA Laceration without foreign body of scalp, initial encounter; J30.9 Allergic rhinitis, unspecified; M19.021 Primary osteoarthritis, right elbow; N13.8 Other obstructive and reflux uropathy; N40.0 Benign prostatic hyperplasia without lower urinary tract symptoms; I12.9 Hypertensive chronic kidney disease with stage 1 through stage 4 chronic kidney disease, or unspecified chronic kidney disease; E11.22 Type 2 diabetes mellitus with diabetic chronic kidney disease; N18.9 Chronic kidney disease, unspecified; E11.51 Type 2 diabetes mellitus with diabetic peripheral angiopathy without gangrene; I70.202 Unspecified atherosclerosis of native arteries of extremities, left leg; I70.291 Other atherosclerosis of native arteries of extremities, right leg; E78.2 Mixed hyperlipidemia; Z79.899 Other long term (current) drug therapy; W10.9XXA Fall (on) (from) unspecified stairs and steps, initial encounter; Y93.01 Activity, walking, marching and hiking; Y92.098 Other place in other non-institutional residence as the place of occurrence of the external cause; Y99.8 Other external cause status
CPT/HCPCS: 99285; 70450 ×2; 96374; 71045; 84484; 80048; 85025; 87086 ×3; 87186 ×2; 82948 ×4; 81001; 36415; 73070; 72220; 72125; 93005; 97161; 97116; J2405; G0378

== ENCOUNTER → 2024-09-19 | Outpatient (CLI) | payer OTHER ==
[~2024-09-19] MED LIST: ATOR40TA71 PO; CYAN10007 IJ; LOSA100T59 PO; METF-446 PO; PIOG30TA70 PO; TAMS-55 PO
--- NOTE | 2024-09-19 15:17 | HMCIMG ---
US VENOUS DOPPLER UNILATERAL REASON: Pain in right leg COMPARISON: None Technique: Right venous doppler ultrasound was performed with spectral analysis and color flow imaging technique. FINDINGS: There is a normal appearance of the common femoral, deep femoral, the profunda femoris and popliteal veins. Proximal calf veins appear normal as well. There is normal response to compression and augmentation. There is no evidence of deep venous thrombosis. The greater saphenous vein on the right measures 7 mm with reflux of 222 ms the right there is saphenous of the knee measures 8mm with the reflux of 161 ms and greater saphenous and calf measures 8mm with reflux of 422 milliseconds. IMPRESSION: Normal right lower extremity venous Doppler ultrasound Severe venous reflux of the right greater saphenous vein suggesting of venous insufficiency..
== END | disposition home or self-care (01) ==
LOC: RAH 12:50
PROVIDERS: ATTEND Internal Medicine
DX: M53.3 Sacrococcygeal disorders, not elsewhere classified (principal); M79.604 Pain in right leg; R60.0 Localized edema
CPT/HCPCS: 93971

== ENCOUNTER → 2024-09-26 | Outpatient (CLI) | payer OTHER, SELFPAY ==
--- NOTE | 2024-09-20 10:20 | HMCIMG ---
EXAM: CT Pelvis with IV contrast CLINICAL HISTORY: Sacrococcygeal disorders not elsewhere classified. Attention to sacrum and coccyx. TECHNIQUE: Axial computed tomography images of the pelvis without intravenous contrast. CONTRAST: None. COMPARISON: None provided. FINDINGS: KIDNEYS: There is an incompletely imaged large 10.5 x 10.5 x 8.4 cm heterogenous mass lesion at the lower pole of right kidney, concerning for a neoplasm. There is a 1.5 cm hyperdense exophytic lesion at the lower pole of left kidney, which may represent a complex haemorrhagic cyst. URINARY BLADDER: There is a large right inguinal hernia measuring 15 x 15 x 6.5 cm containing a portion of partially distended urinary bladder. STOMACH AND BOWEL: Numerous colonic diverticuli are seen without acute diverticulitis. Visualised cecum and transverse colon are distended with faces. The small bowel loops are unremarkable. APPENDIX: Not visualised. PERITONEUM: No free fluid, loculated fluid collection or free air. LYMPH NODES: No lymphadenopathy is evident. REPRODUCTIVE: Prostatomegaly. VASCULATURE: The distal infrarenal abdominal aorta and its branches demonstrate atheromatous calcifications without aneurysm. BONES: No acute fracture or dislocation in the pelvis. There are pars interarticularis defects at L5 bilaterally with grade 1 anterolisthesis of L5 over S1 and consequent disc degeneration at L5/S1. SOFT TISSUE: There is a 1.4 cm subcutaneous hypodense lesion in the right periumbilical region of the lower ventral abdominal wall, which may represent area of fatty necrosis. Post-operative changes, possibly related to prior hernia repair are noted in the right groin. There is however a large right inguinoscrotal hernia containing a portion of urinary bladder and fat as described above. IMPRESSION: No acute fracture or dislocation. Bilateral spondylolysis at L5 with grade 1 anterolisthesis of L5 with respect to S1. Incompletely imaged large heterogenous mass at the lower pole of right kidney concerning for right renal neoplasm. Recommend further evaluation with a contrast-enhanced CT. 1.5 cm complex cyst of the lower pole of left kidney. Colonic diverticulosis without acute added colitis. Large right inguinal hernia containing a portion of urinary bladder. Prostatomegaly. /[place]
== END | disposition home or self-care (01) ==
LOC: CANPRECLI → RAH 13:00
PROVIDERS: ATTEND Internal Medicine
DX: N40.0 Benign prostatic hyperplasia without lower urinary tract symptoms (principal); N28.1 Cyst of kidney, acquired; K57.30 Diverticulosis of large intestine without perforation or abscess without bleeding; K40.90 Unilateral inguinal hernia, without obstruction or gangrene, not specified as recurrent; N28.89 Other specified disorders of kidney and ureter; I70.0 Atherosclerosis of aorta; M43.17 Spondylolisthesis, lumbosacral region; M47.817 Spondylosis without myelopathy or radiculopathy, lumbosacral region; Z98.890 Other specified postprocedural states
CPT/HCPCS: 72192

== ENCOUNTER → 2024-11-25 | Outpatient (CLI) | payer OTHER ==
--- NOTE | 2024-11-25 15:02 | HMCIMG ---
EXAM: MR Brain with and without Intravenous Contrast. CLINICAL HISTORY: G81.91 Hemiplegia, unspecified affecting right dominant side TECHNIQUE: Multisequence, multiplanar magnetic resonance images acquired of the brain with and without intravenous contrast. CONTRAST: COMPARISON: CT brain dated 08/12/2024 FINDINGS: BRAIN: No cerebellar tonsillar ectopia. No abnormal enhancement. The central arterial and venous flow voids are patent. Diffuse brain atrophy with chronic white matter ischemic changes Late subacute extradural hemorrhage in the left parieto-occipital convexity region, maximum width of hemorrhage measuring approximately 15 mm, mass effect in the form of mild compression over the left parieto-occipital lobe sulci, posterior and occipital horn of the left lateral ventricle without midline shift. VENTRICLES: No hydrocephalus. ORBITS: The orbits are normal. SINUSES AND MASTOIDS: The sinuses and mastoid air cells are clear. BONES: No acute fracture or aggressively appearing osseous lesion. IMPRESSION: 1. Late subacute extradural hemorrhage in the left parieto-occipital convexity region, measuring up to 15 mm in width, with mild mass effect. 2. No acute infarction or intracranial mass. /[place]
--- NOTE | 2024-11-25 15:03 | HMCIMG ---
EXAM: MRA Head Without IV contrast. CLINICAL HISTORY: G81.91 Hemiplegia, unspecified affecting right dominant side TECHNIQUE: Magnetic resonance angiography images of the head without intravenous contrast. Three-dimensional MIP reformations performed. Series acquired: 2 - AX 3DTOF ARC - TR: 35.0 - TE: 2.9 - ET: 1.0 - Thk: 1.4 200 - COL:AX 3DTOF ARC - TR: 35.0 - TE: 2.9 - ET: 1.0 - Thk: 1.4 201 - ANT ROT - TR: 35.0 - TE: 2.9 - ET: 1.0 - Thk: 1.4 202 - ANT TUMB - TR: 35.0 - TE: 2.9 - ET: 1.0 - Thk: 1.4 203 - POST ROT - TR: 35.0 - TE: 2.9 - ET: 1.0 - Thk: 1.4 204 - POST TUMB - TR: 35.0 - TE: 2.9 - ET: 1.0 - Thk: 1.4 CONTRAST: None. COMPARISON: 08/12 11/25 FINDINGS: INTERNAL CAROTID ARTERIES: No significant stenosis. No aneurysm or AVM. ANTERIOR CEREBRAL ARTERIES: No significant stenosis. No aneurysm or AVM. MIDDLE CEREBRAL ARTERIES: No significant stenosis. No aneurysm or AVM. POSTERIOR CEREBRAL ARTERIES: No significant stenosis. No aneurysm or AVM. BASILAR ARTERY: No significant stenosis. No aneurysm or AVM. VERTEBRAL ARTERIES: No significant stenosis. No aneurysm or AVM. IMPRESSION: 1. No acute intracranial vascular abnormalities. /[place]
== END | disposition home or self-care (01) ==
LOC: RAH 11:03
PROVIDERS: ATTEND Psychiatry & Neurology Neurology
DX: I67.82 Cerebral ischemia (principal); G31.89 Other specified degenerative diseases of nervous system; G81.91 Hemiplegia, unspecified affecting right dominant side; R41.89 Other symptoms and signs involving cognitive functions and awareness
CPT/HCPCS: 70544; 70551

== ENCOUNTER → 2025-02-03 | Outpatient (CLI) | payer OTHER ==
--- NOTE | 2025-02-03 14:30 | HMCIMG ---
CT HEAD WITHOUT IV CONTRAST CLINICAL HISTORY Nontraumatic intracranial hemorrhage, unspecified TECHNIQUE Axial noncontrast CT images of the head were obtained. COMPARISON MRI brain with and without contrast 25 November 2024. FINDINGS BRAIN No acute intracranial hemorrhage, acute territorial infarct or mass lesion is identified. No midline shift or extra axial fluid collection. There is mild diffuse cerebral volume loss with prominence of the cortical sulci and ventricles, within the range expected for age. Patchy low attenuation is present in the bilateral frontoparietal deep and subcortical white matter, compatible with chronic small vessel ischemic change. Left posterior fossa craniotomy changes are noted with underlying postoperative encephalomalacia; previously described subacute extradural hematoma along the left parieto occipital convexity has resolved, with no residual extradural collection. VENTRICLES AND CSF SPACES Ventricular size and configuration are appropriate for the degree of parenchymal volume loss. Basal cisterns are patent. No hydrocephalus. ORBITS The orbits are unremarkable. SINUSES AND MASTOIDS Paranasal sinuses and mastoid air cells are clear. CALVARIUM AND SOFT TISSUES Left posterior fossa craniotomy defect as described. No acute skull fracture. Scalp soft tissues are unremarkable. IMPRESSION * No acute intracranial hemorrhage, acute territorial infarct or mass effect. * Mild diffuse cerebral volume loss with chronic small vessel ischemic changes in the bilateral frontoparietal white matter. * Left posterior fossa postoperative changes with complete interval resolution of previously noted subacute extradural hematoma along the left parieto occipital convexity. /[place]
== END | disposition home or self-care (01) ==
LOC: RAH 13:06
PROVIDERS: ATTEND Neurological Surgery
DX: I67.82 Cerebral ischemia (principal); I62.9 Nontraumatic intracranial hemorrhage, unspecified
CPT/HCPCS: 70450